=== PATIENT | male | born 1965 | race Caucasian/White ===

== ENCOUNTER → 2016-09-13 | Outpatient (CLI) | payer BC ==
--- NOTE | 2016-09-15 12:02 | SLEEPCENT ---
DATE OF PROCEDURE: 09/13/2016 REFERRING PHYSICIAN: Dr. Griffin Jacobsen. INTERPRETATION: Nocturnal polysomnography was performed for the titration of pressure therapy in this person with obstructive sleep apnea syndrome, apnea hypopnea index of 10. For testing, a ResMed AirFit F20 full-face mask of medium size was used, 4 cm of water pressure was applied to the circuit and the lights were extinguished. 7 hours and 21 minutes of data were reviewed. There were 364 minutes of sleep identified. Sleep latency was prolonged at 36 minutes. Rapid eye movement (REM) latency was prolonged at 150 minutes. Sleep architecture improved with optimal pressure therapy. Overall sleep efficiency was 83%. EKG showed sinus rhythm with an average rate of 68 beats per minute. EEG showed normal wave forms for awake and sleep. Respiratory events were found best palliated with CPAP pressure of +6. CPAP tolerance was good. There was some limb movement activity appreciated during the study with arousal index of limbs 10.9. IMPRESSION: Obstructive sleep apnea syndrome (G47.33) RECOMMENDATION: Night use of pressure therapy at 6 cm of water.
== END ==
LOC: M SLEEP 19:57
PROVIDERS: ATTEND Nurse Practitioner Adult Health
DX: G47.30 Sleep apnea, unspecified (principal)

== ENCOUNTER → 2019-07-09 | Outpatient (REF) | payer BC ==
[2019-07-11 08:06] LABS: LDL DIRECT 80 mg/dL (0-99)
== END ==
LOC: M LAB REF 15:55
PROVIDERS: ATTEND Internal Medicine
DX: E78.5 Hyperlipidemia, unspecified (principal)

== ENCOUNTER → 2019-07-13 | Outpatient (REF) | payer BC | LOC: M LAB REF 16:51 | PROVIDERS: ATTEND Internal Medicine | DX: D72.829 Elevated white blood cell count, unspecified (principal) ==

== ENCOUNTER → 2020-01-10 | Outpatient (CLI) | payer BC ==
--- NOTE | 2020-01-24 12:50 | REP ---
CHEST CT WITHOUT CONTRAST: LOW-DOSE SCREENING EXAM HISTORY: Personal history of nicotine dependence. COMPARISON: No comparison chest CT. There are comparison rib radiographs available from 04/08/2011. 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 There are bilateral upper lobe emphysematous changes. There is no evidence of lung mass or infiltrate. Vascular calcification is seen in the great vessel origins and along the left and right coronary artery distribution. Study is otherwise unremarkable. No significant pulmonary nodule is seen. IMPRESSION: * Cholelithiasis. * Emphysematous changes and vascular, including coronary artery, calcification. * Lung-RADS Category 1 findings. Repeat screening study recommended in one year. MTDD
== END ==
LOC: M RAD 08:00
PROVIDERS: ATTEND Internal Medicine
DX: Z12.2 Encounter for screening for malignant neoplasm of respiratory organs (principal); F17.210 Nicotine dependence, cigarettes, uncomplicated; K80.20 Calculus of gallbladder without cholecystitis without obstruction; J43.9 Emphysema, unspecified; I25.10 Atherosclerotic heart disease of native coronary artery without angina pectoris

== ENCOUNTER → 2020-08-22 | Outpatient (REF) | payer OTHER ==
[2020-08-22 18:09] LABS: FOLLICLE STIMULATING HORMONE 10.9 mIU/mL (1.4-18.1); LUTEINIZING HORMONE 10.2 mIU/mL (1.5-9.3)
[2020-08-25 11:10] LABS: TESTOSTERONE FREE (DIRECT) 7.5 pg/mL (7.2-24.0)
== END ==
LOC: M LAB REF 16:44
PROVIDERS: ATTEND Internal Medicine
DX: N52.9 Male erectile dysfunction, unspecified (principal)

== ENCOUNTER → 2022-04-05 | Outpatient (CLI) | payer OTHER | LOC: M RAD 10:50 | PROVIDERS: ATTEND Internal Medicine | DX: Z12.2 Encounter for screening for malignant neoplasm of respiratory organs (principal); F17.210 Nicotine dependence, cigarettes, uncomplicated; R91.8 Other nonspecific abnormal finding of lung field ==

== ENCOUNTER → 2022-09-16 | Outpatient (REF) | payer OTHER ==
[~2022-09-16] MED LIST: BUPR75TA5 PO; ENAL1TAB50 PO; ESOM40CA35 PO; GLIP5TAB20 PO; METF10004 PO; ROSU20TA5 PO; TADA5TAB PO
== END ==
LOC: M LAB REF 12:26
PROVIDERS: ATTEND Internal Medicine
DX: B34.9 Viral infection, unspecified (principal)

== ENCOUNTER → 2022-11-08 | Outpatient (REF) | payer OTHER ==
[~2022-11-08] MED LIST changes: -ROSU20TA5 PO; +ROSU20TA61 PO
== END ==
LOC: M LAB REF 16:20
PROVIDERS: ATTEND Internal Medicine
DX: Z01.818 Encounter for other preprocedural examination (principal)

== ENCOUNTER → 2022-11-11 | Outpatient (CLI) | payer OTHER ==
[~2022-11-11] MED LIST changes: +CEPH500C PO; +HYDR-3713 PO; +METO1TAB87 PO
[2022-11-11 14:07] LABS: HEMATOCRIT 44.6 % (42.0-52.0); HEMOGLOBIN 15.3 g/dl (13.5-17.5); MEAN CORPUSCULAR HEMOGLOBIN 32.8 pg (27.0-33.0); MEAN CORPUSCULAR HGB CONC 34.3 g/dl (32.0-36.5); MEAN CORPUSCULAR VOLUME 95.7 fl (80.0-96.0); PLATELET COUNT, AUTOMATED 275 10^3/uL (150-450); RED BLOOD COUNT 4.66 10^6/uL (4.30-6.10)
[2022-11-11 14:55] LABS: ALBUMIN 4.1 G/DL (3.2-5.2); ALKALINE PHOSPHATASE 70 U/L (46-116); ALT/SGPT 15 U/L (7.0-40); AST/SGOT 19 U/L (<34); BILIRUBIN,TOTAL 0.5 MG/DL (0.3-1.2); BLOOD UREA NITROGEN < 5 MG/DL (9-23); CALCIUM LEVEL 8.9 MG/DL (8.5-10.1); CARBON DIOXIDE LEVEL 26 MMOL/L (20-31); CHLORIDE LEVEL 102 MMOL/L (98-107); CREATININE FOR GFR 0.64 MG/DL (0.70-1.30); GLOMERULAR FILTRATION RATE > 60.0 (>56); GLUCOSE, FASTING 81 MG/DL (60-100); POTASSIUM SERUM 4.6 MMOL/L (3.5-5.1); SODIUM LEVEL 136 MMOL/L (136-145); TOTAL PROTEIN 7.3 G/DL (5.7-8.2)
[2022-11-11 15:07] LABS: INR 0.91; PROTHROMBIN TIME 12.4 SECONDS (12.5-14.5)
== END ==
LOC: M PAL 12:33 → M LAB 12:33
PROVIDERS: ATTEND Urology
DX: N52.9 Male erectile dysfunction, unspecified (principal)

== ENCOUNTER 2022-11-15 06:16 | Day surgery (SDC) | payer OTHER ==
[~2022-11-15] VITALS: Ht 180.3 cm; Wt 79.7 kg
[~2022-11-15 06:16] MED LIST changes: -CEPH500C PO; +D5W IV ONE; +GENTAMICIN IV ONE; -HYDR-3713 PO; -METO1TAB87 PO; +VANCOMYCIN HCL 1,000 MG, VIAL MATE ADAPTER 1 EACH in D5W 250 ML IV SCH
[2022-11-15] MEDS ORDERED: METO1TAB87 PO (06:44)
[2022-11-15] MEDS ORDERED: LR 1,000 ML IV SCH ×2 (06:45→10:40)
[2022-11-15] MEDS ORDERED: ceFAZolin 1GM VIAL As Ordered ONE (07:18)
[2022-11-15] MEDS ORDERED: propofoL 200 MG/20 ML VIAL As Ordered ONE ×2 (08:08→10:35)
[2022-11-15] MEDS ORDERED: HYDROmorphone HCL 2MG/ML 1ML VIAL As Ordered ONE (08:08)
[2022-11-15] MEDS ORDERED: PHENYLephrine 500MCG 5ML (100MCG/ML) SYRINGE As Ordered ONE ×2 (08:08→09:32)
[2022-11-15] MEDS ORDERED: MIDAZOLAM INJ 2MG/2ML VIAL As Ordered ONE (08:08)
[2022-11-15] MEDS ORDERED: ONDANSETRON 4MG 2ML VIAL As Ordered ONE (08:08)
[2022-11-15] MEDS ORDERED: LIDOCAINE 2% 100MG/5ML SDV (FOR ANES.) As Ordered ONE (08:08)
[2022-11-15] MEDS ORDERED: ACETAMINOPHEN 1000MG 100ML IV BAG As Ordered ONE (08:08)
[2022-11-15] MEDS ORDERED: ePHEDrine SULFATE 25 MG/5 ML(5MG/ML) SYRINGE As Ordered ONE ×2 (08:09→08:53)
[2022-11-15] MEDS ORDERED: ONDANSETRON 4MG 2ML VIAL IV PRN (10:40)
[2022-11-15] MEDS ORDERED: fentaNYL 100 MCG/2 ML INJECTION IV PRN (10:40)
[2022-11-15] MEDS ORDERED: CEPH500C PO (11:03)
[2022-11-15] MEDS ORDERED: HYDR-3713 PO (11:03)
[2022-11-15] MEDS: HYDROMORPHONE HCL 0.5 MG/ 0.5 ML SYRINGE IV PRN ×2 (12:24→12:29)
[2022-11-15] MEDS: oxyCODONE 5MG TAB PO PRN ×2 (12:24→13:05)
[2022-11-15 13:28] VITALS: BP 128/59; TEMP 98.6; O2SAT 97
== END 2022-11-15 15:30 | disposition home or self-care (01) ==
LOC: M SDC 06:16
PROVIDERS: ATTEND Urology
DX: N52.9 Male erectile dysfunction, unspecified (principal); E11.9 Type 2 diabetes mellitus without complications; F17.210 Nicotine dependence, cigarettes, uncomplicated; E78.5 Hyperlipidemia, unspecified; I10 Essential (primary) hypertension; Z79.84 Long term (current) use of oral hypoglycemic drugs; Z79.899 Other long term (current) drug therapy
CPT/HCPCS: 54400; C1813; J0131; J0690; J1100; J1170; J1580; J2250; J2371; J2405

== ENCOUNTER → 2023-07-27 | Outpatient (CLI) | payer OTHER ==
[~2023-07-27] MED LIST changes: +CEPH500C PO; -D5W IV ONE; -GENTAMICIN IV ONE; +HYDR-3713 PO; +METO1TAB87 PO; -VANCOMYCIN HCL 1,000 MG, VIAL MATE ADAPTER 1 EACH in D5W 250 ML IV SCH
== END ==
LOC: M RAD 13:37
PROVIDERS: ATTEND Internal Medicine
DX: Z12.2 Encounter for screening for malignant neoplasm of respiratory organs (principal); F17.210 Nicotine dependence, cigarettes, uncomplicated

== ENCOUNTER → 2023-08-18 | Outpatient (REF) | payer OTHER ==
[2023-08-18 17:19] LABS: APPEARANCE, URINE CLEAR (CLEAR); BACTERIA, URINE AUTO NEGATIVE (NEGATIVE); BILIRUBIN, URINE AUTO NEGATIVE (NEGATIVE); BLOOD, URINE BLOOD NEGATIVE (NEGATIVE); COLOR, URINE STRAW (YELLOW); GLUCOSE, URINE (UA) AUTO 3+ mg/dL (NEGATIVE); KETONE, URINE AUTO NEGATIVE (NEGATIVE); LEUKOCYTE ESTERASE, URINE AUTO NEGATIVE (NEGATIVE); MUCUS, URINE SMALL (NEGATIVE); NITRITE, URINE AUTO NEGATIVE (NEGATIVE); PROTEIN, URINE AUTO NEGATIVE (NEGATIVE); RBC, URINE AUTO 0 /HPF (0-3); SPECIFIC GRAVITY URINE AUTO 1.003 (1.002-1.035); SQUAMOUS EPITHELIAL CELL UR AU 0 /HPF (0-6); UROBILINOGEN, URINE AUTO 0.2 mg/dL (0.0-2.0); WBC, URINE AUTO 1 /HPF (0-3)
[2023-08-18 17:23] LABS: INR 0.87; PARTIAL THROMBOPLASTIN TIME 27.9 SECONDS (24.8-34.2); PROTHROMBIN TIME 11.6 SECONDS (12.5-14.5)
== END ==
LOC: M LAB REF 16:14
PROVIDERS: ATTEND Internal Medicine
DX: Z01.818 Encounter for other preprocedural examination (principal); T83.410A Breakdown (mechanical) of implanted penile prosthesis, initial encounter; N52.9 Male erectile dysfunction, unspecified

== ENCOUNTER → 2024-09-13 | Outpatient (CLI) | payer OTHER ==
[~2024-09-13] MED LIST changes: +GLIP-318 PO; -GLIP5TAB20 PO; -ROSU20TA61 PO; +ROSU20TA86 PO; -TADA5TAB PO; +TADA5TAB2 PO
== END ==
LOC: M RAD 08:26
PROVIDERS: ATTEND Internal Medicine
DX: J98.4 Other disorders of lung (principal); J43.9 Emphysema, unspecified; F17.210 Nicotine dependence, cigarettes, uncomplicated

== ENCOUNTER 2024-11-01 11:30 | Day surgery (SDC) | payer OTHER ==
[~2024-11-01] VITALS: Ht 180.3 cm; Wt 77.9 kg
[~2024-11-01 11:30] MED LIST changes: +FARX1TAB5 PO
[2024-11-01] MEDS ORDERED: LIDOCAINE 2% 100 MG/5 ML SDV (FOR ANES.) As Ordered ONE (12:30)
[2024-11-01 13:21] VITALS: BP 153/76; TEMP 97.4; O2SAT 97
== END 2024-11-01 13:21 | disposition home or self-care (01) ==
LOC: M OPP 11:30
PROVIDERS: ATTEND Surgery
DX: Z12.11 Encounter for screening for malignant neoplasm of colon (principal); D12.6 Benign neoplasm of colon, unspecified; Z79.84 Long term (current) use of oral hypoglycemic drugs; Z79.899 Other long term (current) drug therapy; F17.210 Nicotine dependence, cigarettes, uncomplicated